=== PATIENT | female | born 1985 | race Caucasian/White ===

== ENCOUNTER → 2017-09-26 | Outpatient (CLI) | payer OTHER ==
[2016-06-23 18:30] VITALS: BMI 28.5
[~2017-09-26] MED LIST: AZIT-1 PO; BENZ200C15 PO; GUAI120L3 PO; HYDR5SUS PEG; MULT-865 PO; NORE-74 PO; NORE0.353 PO; PNV-9 PO; PRED20TA6 PO
--- NOTE | 2017-09-26 17:03 | RADIOLOGY IMAGING REPORT ---
[place]AC[place] [facility] [place]IENT NAME: Amanda Perkins : 1985 MR: [id number] V: [id number] EXAM DATE: ORDERING PHYSICIAN: ROHINI MARS TECHNOLOGIST: Location: [facility] Patient: Amanda Perkins : 1985 Visit/Account:[id number] Date of Sevice: 09/26/2017 EXAMINATION: Thyroid ultrasound 09/26/2017 8:30 AM History: Multinodular thyroid. Previous FNA biopsies. COMPARISON STUDIES: 02/07/2017. Ultrasound-guided left lobe FNA biopsy 03/06/2017 FINDINGS: Thyroid size: Right lobe 7.5 x 1.6 x 2.3 cm Left lobe 8.5 x 3.5 x 4.0 cm Isthmus 1.4 cm Thyroid nodules: Right lobe - oval solid circumscribed mass in the superior pole measures 3.0 x 1.4 x 1.6 cm, pr evious 2.7 x 1.3 x 1.5 cm. Solid nodule immediately below this is 2.2 x 1.5 x 1.9 cm, previously only measured at 1.0 x 1.0 x 1.0 cm. There is solid nodule in the lower pole measures 1.9 x 1.9 x 1.5 cm, not previously discretely marginated. Oval solid hypoechoic nodule between the lower poles measures 5.0 x 4.8 x 3.1 cm, previously 4.0 x 3.0 x 2.2 cm. Left lobe - dominant oval solid nodule midportion measures 4.4 x 4.0 x 3.3 cm. Additional isoec hoic rounded solid nodule below this measures 3.1 x 2.4 x 2.7 cm. Isthmus - solid mildly hyperechoic circumscribed nodule along the right side of isthmus measure s 2.4 x 1.8 x 2.0 cm Thyroid vascularity: normal IMPRESSION: Multinodular thyroid. Growing greater than 2 cm nodule in the midportion of the right lobe, 2.4 cm lo w suspicion nodule on the right side of isthmus, and growing dominant nodule between both lower poles . FNA assessment of each of these could be considered. The mid pole nodule on the left has grown sign ificantly, the right isthmic nodule was not previously well-defined, and the inferior nodule between both lower poles which was biopsied in 2016 has virtually doubled in volume since that time. Given th e multinodular appearance of the gland, the additional lower pole nodule in the right could be follow ed rather than biopsied at this time. Other nodules are not clearly changed enough to warrant FNA ass essment. REFERENCE: 2015 [place] [employer] Management Guidelines for Adult Patients with Thyroid Nodules and D ifferentiated Thyroid Cancer: The [place] [employer] Guidelines Task Force on Thyroid Nodul es and Differentiated Thyroid Cancer. SONOGRAPHIC PATTERNS: * Benign: Purely cystic nodules (no solid component); estimated risk of malignancy <1 percent; no bi opsy recommended. * Very Low Suspicion: Spongiform or partially cystic nodules without any of the sonographic features described in low, intermediate, or high suspicion patterns; estimated risk of malignancy <3 percent; consider FNA at > 2 cm (Observation without FNA is also a reasonable option). * Low Suspicion: Isoechoic or hyperechoic solid nodule, or partially cystic nodule with eccentric so lid areas, without microcalcification, irregular margin or ETE (extra-thyroidal extension), or taller than wide shape; estimated risk of malignancy 5-10 percent; recommend FNA at >1.5 cm. * Intermediate Suspicion: Hypoechoic solid nodule with smooth margins without microcalcifications, E TE (extra-thyroidal extension), or taller than wide shape; estimated risk of malignancy 10-20 percent ; recommend FNA at > 1 cm. * High Suspicion: Solid hypoechoic nodule or solid hypoechoic component of a partially cystic nodule with one or more of the following features: irregular margins (infiltrative, microlobulated), microc alcifications, taller than wide shape, rim calcifications with small extrusive soft tissue component, evidence of ETE (extra-thyroidal extension); estimated risk of malignancy >70-90 percent; recommend FNA at > 1 cm. NOTES: * Although a sonographically suspicious subcentimeter thyroid nodule without evidence of extrathyroi nikki extension or sonographically suspicious lymph nodes may be observed with close sonographic follow -up rather than pursuing immediate FNA, p tient age and preference may modify decision-making.A > 50% interval increase in nodule volume and/or development of new suspicious sonographic features are fel t to be a valid reasons for potential re-aspiration of a nodule previously shown to have benign FNA c ytology. Report Dictated By: Álvaro Diaz MD at 09/26/2017 4:44 PM Report E-Signed By: Álvaro Diaz MD at 09/26/2017 4:59 PM [id number]
== END ==
LOC: US 01:31
PROVIDERS: ATTEND Surgery
DX: E04.1 Nontoxic single thyroid nodule (principal)
CPT/HCPCS: 76536

== ENCOUNTER → 2017-10-24 | Outpatient (CLI) | payer OTHER ==
[2016-06-23 18:30] VITALS: BMI 28.5
[~2017-10-24] MED LIST changes: +CHOL500051 PO; +ESCI20TA38 PO
--- NOTE | 2017-10-24 22:14 | RADIOLOGY IMAGING REPORT ---
FACILITY: [facility] - [place] PATIENT NAME: Amanda Perkins : 1985 MR: [id number] V: [id number] EXAM DATE: ORDERING PHYSICIAN: FLORESITA SPENCE TECHNOLOGIST: Location: [facility] Patient: Amanda Perkins : 1985 Visit/Account:[id number] Date of Sevice: 10/24/2017 Transvaginal and transabdominal pelvic ultrasound INDICATION: Irregular menses COMPARISON: None Available FINDINGS: Uterus measures 8.6 x 3.3 x 6.3 cm. There is a fibroid within the anterior uterine body/fundus measur ing 2.0 x 2.1 x 1.1 cm. This fibroid is intramural with mild mass effect upon the endometrial stripe. Double wall endometrial stripe measures 5 mm. There is no free fluid in the cul-de-sac. Urinary bladder is unremarkable. Pelvic vessels appear unremarkable on this examination. Right ovary measures 2.5 x 1.7 x 1.3 cm and shows normal blood flow and contains several small follic les. Left ovary measures 4.5 x 3.3 x 3.4 cm and shows normal blood flow and contains a simple appearing cy st measuring 3.6 x 2.6 x 2.5 cm. IMPRESSION: 1. No acute findings. 2. Intramural fibroid within the anterior uterine body/fundus measuring up to 2.1 cm. There is mild m ass effect upon the endometrial stripe without definitive some mucosal component. 3. Simple appearing left ovarian cyst measuring up to 3.6 and meter's. Report Dictated By: David Bowman MD at 10/24/2017 10:07 PM Report E-Signed By: David Bowman MD at 10/24/2017 10:10 PM WSN:[id number]
== END ==
LOC: US 01:02
PROVIDERS: ATTEND Obstetrics & Gynecology
DX: D25.1 Intramural leiomyoma of uterus (principal); N83.292 Other ovarian cyst, left side
CPT/HCPCS: 76856

== ENCOUNTER 2017-12-05 01:56 | Observation (INO) | payer OTHER ==
[2016-06-23 18:30] VITALS: Ht 157.5 cm; Wt 71.7 kg
[~2017-12-05] VITALS: Ht 157.5 cm; Wt 71.7 kg
[2017-12-05] VITALS (15 sets, daily range): BP systolic 103–138; BP diastolic 66–93
[~2017-12-05 01:56] MED LIST changes: +CHOL500050 PO; +VANCOMYCIN 1 GM ADDVIAL 1 GM in NS(*) 0.9% 250 ML ADDVAN BAG 250 ML IVPB ONE; +[UNRECOGNIZED DRUG - CODE] PO
[2017-12-05] MEDS ORDERED: NORMOSOL R SOLN(*) 1000 ML BAG 1,000 ML IV PRN (06:45)
[2017-12-05] MEDS ORDERED: FAMOTIDINE 20 MG TAB PO ONE (06:45)
[2017-12-05] MEDS ORDERED: MIDAZOLAM 2 MG/2 ML VIAL IVP PRN (06:45)
[2017-12-05] MEDS ORDERED: LIDOCAINE/SOD BICARB 8.4% SYR ID ONE (06:45)
[2017-12-05] MEDS ORDERED: VANCOMYCIN 1 GM ADDVIAL 1 GM in NS(*) 0.9% 250 ML ADDVAN BAG 250 ML IVPB ONE (10:35)
[2017-12-05] MEDS ORDERED: ROPIVACAINE 0.5% 20 ML VIAL ONE (10:56)
[2017-12-05] MEDS ORDERED: LIDOCAINE MPF 1% 5 ML VIAL ONE (11:09)
[2017-12-05] MEDS ORDERED: METOCLOPRAMIDE 10 MG/2 ML SDV ONE (11:09)
[2017-12-05] MEDS ORDERED: PROPOFOL EMUL(*) 10MG/ML 20 ML 20 ML ONE (11:09)
[2017-12-05] MEDS ORDERED: DEXAMETHASONE SOD 4 MG/ML VIAL ONE (11:09)
[2017-12-05] MEDS ORDERED: ONDANSETRON 4 MG/2 ML VIAL ONE (11:09)
[2017-12-05] MEDS ORDERED: GLYCOPYRROLATE 1 MG/5 ML INJ ONE (11:16)
[2017-12-05] MEDS ORDERED: NEOSTIG METHYLSUL 10MG/10ML VL ONE (11:16)
[2017-12-05] MEDS ORDERED: fentaNYL CITR 250 MCG/5 ML AMP ONE (11:19)
[2017-12-05] MEDS ORDERED: CELLULOSE HEMOSTAT 1 EACH PKT OP-SITE ONE (14:48)
[2017-12-05] MEDS ORDERED: GELATIN SPONGE 12-7MM ONE ×2 (14:51→15:47)
[2017-12-05] MEDS ORDERED: NEOMYCIN/POLYMYX/BACITR OINT 1 PACKET TP ONE (16:10)
[2017-12-05] MEDS ORDERED: PROMETHAZINE 25 MG/ML 1 ML AMP IVP PRN (16:30)
[2017-12-05] MEDS ORDERED: FLUSH 10 ML SYR IVP PRN (16:30)
[2017-12-05] MEDS ORDERED: ONDANSETRON 4 MG/2 ML VIAL IVP PRN (16:30)
[2017-12-05] MEDS ORDERED: NS(*) 0.9% 1000 ML BAG 1,000 ML IV PRN (16:30)
[2017-12-05] MEDS ORDERED: CHOLECALCIFEROL PO SCH (16:30)
[2017-12-05] MEDS ORDERED: MORPHINE 2 MG/ML SYR IVP PRN (16:30)
[2017-12-05] MEDS ORDERED: fentaNYL CITR 100 MCG/2 ML AMP ONE (16:55)
--- NOTE | 2017-12-05 16:57 | Post Operative Progress Note ---
Post Operative Progress Note Date: Dec 05, 2017 Time: 16:42 Surgeon: Rogelio Dictation number: [id number] Anesthesia: GETA by Dr. Self Pre-Op Diagnosis: Multinodular Goiter Post-Op Diagnosis: MEG Findings: C/W dx Procedure(s): Total thyroidectomy Specimen Removed:(May be N/A): Thyroid Complications: None Fluids: See anesthesia record Estimated Blood Loss: Minimal Date OP Note Dictated: Dec 05, 2017 Time OP Note Dictated: 16:44 ROHINI MARS MD Dec 05, 2017 16:57
[2017-12-05] MEDS: CALCIUM CARBONATE 600 MG TAB PO SCH (17:59)
[2017-12-05] MEDS ORDERED: ESC10 PO (18:07)
--- NOTE | 2017-12-05 19:46 | OPERATIVE REPORT 1 ---
EVENT DATE: December 05, 2017 SURGEON: Joshua Mercado MD ANESTHESIOLOGIST: Joshua Self MD ANESTHESIA: General endotracheal anesthesia. PREOPERATIVE DIAGNOSIS Multinodular goiter. POSTOPERATIVE DIAGNOSIS Multinodular goiter. PROCEDURE PERFORMED Total thyroidectomy. COMPLICATIONS None. CONDITION Stable. BLOOD LOSS Minimal. FINDINGS The patient had a very large thyroid. Her left thyroid lobe was much larger than her right and had multiple nodules on both sides. There was no obvious extracapsular invasion or other signs of a neoplasm. INDICATIONS This is a 32-year-old female whom I followed for a couple years with repeated thyroid ultrasounds on her with biopsies, and each time the nodules were getting bigger. I discussed with her just proceeding with a total thyroidectomy because there were nodules on both thyroid lobes that were getting bigger, and ultimately she elected to proceed with this. DESCRIPTION OF PROCEDURE The patient was brought to the operating room and placed supine on the operating table. General endotracheal anesthesia was administered with a nerve- monitoring endotracheal tube. I placed the other leads for the nerve monitor in her subcutaneous tissue and her upper chest. She was positioned appropriately on the table. Incidentally when she was intubated, I did look at her vocal cords, and they were symmetric. She was placed in the reclining beach chair position, and her neck was prepped and draped in a sterile fashion. I then marked the skin at the mentum of her mandible and the suprasternal notch to enter a line for the midline and then found a nice skin crease. I made a juan luis in the skin crease 3 cm on both sides of the midline juan luis for a total of a 6 cm incision. I then anesthetized the skin in this area with 0.5% ropivacaine plain and then made a Jenae, collar-type incision in this area. I dissected through the dermis and subcutaneous fat. I dissected through the platysma muscle and created subplatysmal flaps both superiorly up to the laryngeal cartilage and inferiorly down to the sternal notch. I then divided the median raphe between the vertical strap muscles with electrocautery. We got down into below both layers of strap muscles and into the thyroid space and then started with the patient's left lobe. I divided the areolar connective tissue posterior to the strap muscles and anterior to the thyroid all the way around to the edge. I then sequentially dissected around the thyroid and mobilized the entire left lobe. I sequentially divided the inferior vessels to the inferior pole as well as the superior pole. I intermittently used the nerve monitor probe to look for the nerve. I identified both the superior laryngeal and the recurrent laryngeal nerves. There was a very large exophytic nodule on the inferior pole that took a little bit of dissection to get free, but ultimately I was able to do this. I clearly identified the recurrent laryngeal nerve as well as the superior and inferior parathyroid muscles. I tracked the inferior thyroidal artery out to its branches and divided it distal to the branches so as to maintain the blood flow to the parathyroid gland and the parathyroids off the posterior surface of the thyroid. Ultimately , I got down to the ligament of Betancur and divided this across the anterior surface of the trachea. The recurrent laryngeal nerve was very clearly visualized. The nerve monitor revealed that it was intact with a good wave form on the monitor. I then went over to the other side of the table and performed the exact same procedure on the right thyroid lobe. The right thyroid lobe was actually much easier because it was much smaller, although it was still nodular. I did preserve both parathyroid glands on the right side and also identified the recurrent laryngeal nerve on the right side. After the thyroid was removed, I irrigated and dried the neck and placed some Gelfoam strips in the paratracheal spaces bilaterally. There was no ongoing bleeding at all. I placed a 10-Czech drain into the pretracheal and paratracheal space , and it exited in the midline in the supraclavicular notch. I sewed this to the skin with a single 2-0 silk suture. I then reapproximated the strap muscles in the midline raphe with interrupted 3-0 Vicryl sutures. Platysma muscle was reapproximated with interrupted 3-0 Vicryl sutures. I then closed the skin with running 4-0 Monocryl subcuticular sutures. Her skin was cleaned and dried, and Steri-Strips were applied lengthwise along the incision. I placed a drain dressing around the drain. The drapes were taken down, and the subcutaneous nerve monitor probes were removed from the patient's skin. Incidentally, she wanted me to remove a mole from the right side of her neck, and this was a simple amputation of the pigmented skin tag at the level of the dermis. This was done before the thyroidectomy. This was also sent to Pathology for evaluation. After the patient was cleaned up, I had the anesthesiologist extubate her, and using the GlideScope, we viewed her vocal cords which looked great and symmetric and exactly as they did prior to intubation. After she was more awake, she was transported the recovery room in stable condition having tolerated the procedure without any apparent problems. XIOMARA
[2017-12-05] MEDS: FAMOTIDINE 20 MG TAB PO SCH (20:46)
[2017-12-05] MEDS: DOCUSATE SODIUM 100 MG CAP PO SCH (20:46)
[2017-12-06 03:55] VITALS: BP 91/72
[2017-12-06 06:17] LABS: PLATELET COUNT, AUTOMATED 189 K/uL (150-450)
[2017-12-06] MEDS ORDERED: DOCU-202 PO (06:49)
[2017-12-06] MEDS ORDERED: CAL600 PO (06:49)
[2017-12-06] MEDS ORDERED: PER PO (06:49)
--- NOTE | 2017-12-06 06:53 | Short(Outpt) Discharge Summary ---
Discharge Summary Reason for Hosp/Final Diag: (1) Multinodular goiter Status: Chronic Hospital Course & Plan: 12/06/17: POD#1 s/p total thyroidectomy. Doing well. Drain removed. No other issues. Surgical site looks good. Voice normal. Will d/c to home this morning. Departure Discharge to: Home, Self Care Discharge Instructions Home Meds Active Scripts Oxycodone/Acetaminophen (OXYCODONE/ACETAMINOPHEN 5MG/325 MG) 5 Mg/325 Mg Tab, 1- 2 TAB PO Q4H Y for PAIN, #20 TAB 0 Refills Prov:ROHINI MARS MD 12/06/17 Docusate Sodium (DOCUSATE SODIUM) 100 Mg Capsule, 1 CAP PO BID, #30 CAPSULE 0 Refills Prov:ROHINI MARS MD 12/06/17 Calcium Carbonate (ELEMENTAL CALCIUM) 600 Mg Tab, 1 TAB PO BIDBS, #60 TAB 0 Refills Prov:ROHINI MARS MD 12/06/17 Reported Medications Escitalopram Oxalate (LEXAPRO) 10 Mg Tab, 10 MG PO DAILY, TAB 12/05/17 Cholecalciferol (Vitamin D3) (Vitamin D) 50,000 Unit Capsule, 1 CAP PO QWEEK 11/29/17 Multivitamin (FRUITY VITAMIN) 1 Each Tab.chew, 2 EACH PO QDAY, TAB.CHEW 11/29/17 Norethindrone A-E Estradiol (MICROGESTIN) 1 Each Tablet, 1 TAB PO QDAY 02/19/17 Discontinued Reported Medications Escitalopram Oxalate (LEXAPRO) 20 Mg Tablet, 1 TAB PO QDAY, TAB 10/15/17 Cholecalciferol (Vitamin D3) (Vitamin D) 5,000 Unit Capsule, 1 CAP PO QWEEK 10/15/17 Follow up Referrals: General Surgery - 12/25/17 @ Surgery, General with Rohini Mars Md You have a follow up appointment scheduled with Dr. Mars on 12/25/17, at 1: 00pm. Diet: Regular Activity: As Tolerated Special Instructions: You may remove the dressing over the drain site on 12/07/17, then you can shower. After showering, leave the incision and drain site open to air but leave the steristrips in place over the incision until they fall off on their own. Do not immerse the incision for 2 weeks. Avoid any straining or strenuous activity, lifting more than 10 pounds, over the weekend but you can resume regular activities without restrictions starting on 11/29/17. ROHINI MARS MD Dec 06, 2017 06:52
[2017-12-06 07:33] VITALS: BP 104/72
[2017-12-06] MEDS: CALCIUM CARBONATE 600 MG TAB PO SCH (08:33)
[2017-12-06] MEDS: DOCUSATE SODIUM 100 MG CAP PO SCH (08:33)
[2017-12-06] MEDS: FAMOTIDINE 20 MG TAB PO SCH (08:33)
[2017-12-06] MEDS ORDERED: MULTIVITAMINS TAB PO SCH (09:00)
[2017-12-06] MEDS ORDERED: ESTRADIOL/NORETHINDR ACETATE 1 EA TAB PO SCH (09:00)
[2017-12-06] MEDS ORDERED: ESCITALOPRAM OXALATE 10 MG TAB PO SCH (09:00)
[2017-12-10] MEDS ORDERED: LEVO50TA86 PO (18:27)
== END 2017-12-06 06:47 | disposition home or self-care (01) ==
LOC: OR 01:56 → MED 17:45 → INTOOBSV 17:45
PROVIDERS: ADMIT Surgery; ATTEND Surgery
DX: E04.2 Nontoxic multinodular goiter (principal)
CPT/HCPCS: 36415; 60240; 82330; 83970; 84443; 84703; 85025; 88305; 88307; G0378; J1100; J2001; J2250; J2405; J2704; J2710; J2765; J2795; J3010; J3370; J3490; J7030; J7050; 82310; 82374; 82435; 82565; 82947; 84132; 84295; 84520

== ENCOUNTER → 2017-12-30 | Outpatient (REF) ==
[2016-06-23 18:30] VITALS: BMI 28.5
[~2017-12-30] MED LIST changes: +CAL600 PO; +DOCU-202 PO; +ESC10 PO; +FLUC100T39 PO; +LEVO50TA86 PO; +PER PO; -VANCOMYCIN 1 GM ADDVIAL 1 GM in NS(*) 0.9% 250 ML ADDVAN BAG 250 ML IVPB ONE
[2017-12-30 09:06] LABS: LDL CHOLESTEROL 70 mg/dl
== END ==
DX: Z02.9 Encounter for administrative examinations, unspecified (principal)

== ENCOUNTER → 2018-01-22 | Outpatient (CLI) | payer OTHER ==
[2016-06-23 18:30] VITALS: BMI 28.5
== END ==
LOC: LAB 09:20
PROVIDERS: ATTEND Surgery
DX: E89.0 Postprocedural hypothyroidism (principal); E55.9 Vitamin D deficiency, unspecified
CPT/HCPCS: 36415; 82306; 84443

== ENCOUNTER → 2018-03-06 | Outpatient (CLI) | payer OTHER ==
[2016-06-23 18:30] VITALS: BMI 28.5
== END ==
LOC: LAB 13:59
PROVIDERS: ATTEND Surgery
DX: E89.0 Postprocedural hypothyroidism (principal)
CPT/HCPCS: 36415; 82310; 84443

== ENCOUNTER → 2018-08-28 | Outpatient (CLI) | payer OTHER ==
[2016-06-23 18:30] VITALS: BMI 28.5
== END ==
LOC: LAB 12:03
PROVIDERS: ATTEND Surgery
DX: Z98.890 Other specified postprocedural states (principal)
CPT/HCPCS: 36415; 84443

== ENCOUNTER → 2018-12-30 | Outpatient (REF) ==
[2016-06-23 18:30] VITALS: BMI 28.5
[2018-12-30 08:05] LABS: LDL CHOLESTEROL 50 mg/dl
== END ==
DX: Z02.9 Encounter for administrative examinations, unspecified (principal)